=== PATIENT | male | born 1990 | race Caucasian/White ===

== ENCOUNTER 2021-12-16 17:35 | Emergency (ER) | payer OTHER, SELFPAY ==
[2021-12-16 17:36] VITALS: BP 131/84; PULSE 102; RESP 16; TEMP 36; O2SAT 98; BMI 27.3
--- NOTE | 2021-12-16 17:53 | EX.ED.UPPERE ---
HPI History of Present Illness Chief Complaint: Laceration Informant: patient Narrative Narrative: 31-year-old male presenting to the emergency department chief complaint of crush injury to the right little finger. This happened at work last night around 2100 hrs. He notes it caused a laceration on the volar aspect of his right little finger. He states that the tip was deformed and he straightened it. He put Steri-Strips and some antibiotic ointment on. Today it still open and he wanted to be evaluated. Tetanus Immunization: >10 years PFSH PFS Home Medications cephalexin 500 mg capsule 500 mg PO Q6 #28 CAPSULES 12/16/21 [Rx Last Taken Unknown] Allergy/AdvReac Type Severity Reaction Status Date / Time amoxicillin Allergy Hives Verified 12/16/21 17:41 Penicillins Allergy Hives Verified 12/16/21 17:41 Social History (Updated 12/16/21 @ 17:[address] Sreedhar Lemus, DO) Smoking Status: Current every day smoker substance use type: does not use ROS ROS ED Constitutional Constitutional ED: Denies chills, fever(s) or weight loss Eyes Eyes: Denies change in vision or diplopia ENT ENT ED: Denies ear pain, rhinorrhea or sore throat Cardiovascular Cardiovascular: Denies chest pain, orthopnea, palpitations or racing heartbeat Respiratory/Chest Respiratory/Chest: Denies cough, dyspnea or orthopnea Gastrointestinal Gastrointestinal: Denies abdominal pain, diarrhea, nausea or vomiting Genitourinary Genitourinary ED: Denies dysuria, hematuria or urinary frequency Musculoskeletal Musculoskeletal: Denies arthralgias or myalgias Integumentary Reports other Details: See history of present illness ; Denies abscess or rash Neurologic Neurologic: Denies headache(s) or weakness Psychiatric Psychiatric: Denies anxiety, depression, suicidal ideation or suicidal thoughts Endocrine Endocrinology: Denies polydipsia, polyphagia or polyuria Allergic/Immunologic Allergic/Immunologic ED: Denies mouth swelling, tongue swelling or urticaria EXAM Physical Exam Const Vital Signs: 12/16/21 17:36 Temperature 96.8 F L Temperature Source Temporal Pulse Rate 102 H Respiratory Rate 16 Blood Pressure 131/84 H Blood Pressure Mean 99 Pulse Ox 98 Oxygen Delivery Method Room Air Positive well nourished and well developed General Appearance ED: well developed HEENT Reports normocephalic, head/scalp atraumatic and moist mucous membranes Eyes PERRL and EOMs intact bilaterally Neck no lymphadenopathy, supple and no JVD Resp normal respiratory effort and clear to auscultation bilaterally Cardio regular rate, regular rhythm and no murmurs GI normal to inspection, nondistended, normoactive bowel sounds and non-tender Palpation: soft Back/Spine no CVA tenderness and normal ROM Extremity Extremity Narrative: There is a 3 cm long irregular laceration to the volar aspect of the right little finger. The wound edges are pretty well approximated. There is an area of about 1 cm where there is about a 2 mm gap between the wound edges. There is no active bleeding. The skin is looks very wet and is white. Neurovascularly he appears intact. General Extremety ED: Negative for edema General Extremity: Negative for edema Neuro oriented x3 and CN's II-XII intact bilaterally Sensorium / Orientation: alert Motor Exam: strength 5/5 throughout Psych mental status grossly normal Mood & Affect: Negative for depressed or tearful Skin no rashes or lesions noted and no wounds MDM MDM MDM Narrative Medical decision making narrative: Interpretation of the plain films of the right little finger is no acute fracture. There is a foreign body noted on the dorsum near the DIP joint. In speaking with the patient and using shared decision making he would like me to not open the finger and attempt to remove the piece of foreign body. It has been almost 24 hours since the accident. The tissue is wet and friable but still well approximated. I think trying to suture this would be difficult and risky. I think it is reasonable that we clean the wound put him on antibiotics show him how to dress it. Antibiotic ointment once a day and allowing time to aired out return if worsening or concerns. Tetanus updated with [facility] Discharge Plan Triage Chief Complaint: Laceration ED Provider: Sreedhar Lemus Dx/Rx/DC Orders Clinical Impression: Finger laceration, Dislocation of finger, interphalangeal joint, right, closed, Crush injury Instructions: ED Finger Dislocation, ED Laceration, Old: Not Sutured Prescriptions: New cephalexin [cephalexin] 500 mg capsule 500 mg PO Q6 Qty: 28 0RF Primary Care Provider: Care Physician,No Primary Referrals: Megan Hester MD [Med Staff - Active Staff] - 1 Week if not improving NOT,DEFINED [NON-STAFF] - Disposition Disposition: Home, Self Care
--- NOTE | 2021-12-16 17:57 | RAD_ITS ---
STUDY: X-RAY - RIGHT HAND, ATTENTION FIFTH FINGER REASON FOR EXAM: Male, 31 years old. Question of fifth finger between white and culp full about 2300 last night. Laceration will not stay closed. TECHNIQUE: 3 view(s) of the finger were obtained. COMPARISON: None. FINDINGS: Normal metacarpal head. Normal metacarpophalangeal joint. Normal proximal phalanx. Normal middle phalanx. Normal distal phalanx. Normal proximal interphalangeal joint. Normal distal interphalangeal joint. There is a 9 mm high density foreign body in soft tissues over the dorsal lateral aspect of the head of the middle phalanx. Soft tissues appear otherwise unremarkable RAD/Finger(s) Min 2 Views IMPRESSION: Foreign body in the soft tissues of the distal finger. No fracture or dislocation. Electronically Signed: Kendrick Medley DO at 18:41 EDT ,
== END 2021-12-16 18:17 | disposition home or self-care (01) ==
PROVIDERS: Emergency Provider Emergency Medicine; Visit Provider Emergency Medicine
DX: S61.216A Laceration without foreign body of right little finger without damage to nail, initial encounter (principal); S63.276A Dislocation of unspecified interphalangeal joint of right little finger, initial encounter; W23.0XXA Caught, crushed, jammed, or pinched between moving objects, initial encounter; Z23 Encounter for immunization; F17.200 Nicotine dependence, unspecified, uncomplicated
CPT/HCPCS: 73140; 99281